=== PATIENT | female | born 1980 | race Caucasian/White ===

== ENCOUNTER 2019-10-02 10:10 | Outpatient (CLI) | payer BC, SELFPAY ==
--- NOTE | ~2019-10-02 | US_ITS ---
EXAMINATION: US carotid duplex BI DATE: 10/02/2019 10:52 INDICATION: Left carotid bruit TECHNIQUE: Grayscale, color Doppler, and pulsed Doppler images of the cervical carotid arteries were obtained. The degree of vessel stenosis is placed in one of the following categories: normal, <50%, 5 0-69%, >=70% but less than near-occlusion, near-occlusion, or total occlusion. Note that percent sten osis relative to normal distal artery lumen diameter is indirectly measured from velocity measurement s as described by Fco, et al. Radiology 2003; 229:340-346. Notes: Normal: Peak systolic velocity <125 centimeters/sec and no plaque <50%. Peak systolic velocity <125 ( EDV <40; ICA/CCA PSV ratio <2.0; used these factors only a tandem lesions or low cardiac output or co ntralateral disease) 50-69 %: PSV 125-230 (EDV 40-100; ratio 2-4) >= 70% but less than near occlusion: PSV greater than 230 (EDV > 100; ratio> 4.0) Near Occlusion: PSV that is variable; markedly narrowed lumen Occlusion: Absent flow on color/spectral Doppler and no lumen on joseph scale. COMPARISON: 12/30/2016 FINDINGS: RIGHT: The right common carotid artery (CCA) peak systolic velocity (PSV) is 126 cm/s. The right internal ca rotid artery (ICA) PSV is 108 cm/s. The right ICA end-diastolic velocity (EDV) is 26 cm/s. The right ICA/CCA PSV ratio is 0.9. The external carotid artery (ECA) PSV is 90 cm/s. There is antegrade flow i n the right vertebral artery. LEFT: The left CCA PSV is 132 cm/s. The left ICA PSV is 116 cm/s. The left ICA EDV is 45 cm/s. The left ICA /CCA PSV ratio is 0.9. The ECA PSV is 96 cm/s. There is antegrade flow in the left vertebral artery. IMPRESSION: 1. Less than 50% stenosis in the right internal carotid artery by sonographic criteria. 2. Less than 50% stenosis in the left internal carotid artery by sonographic criteria. Reviewed, dictated and finalized at location I. IMPRESSION: 1. Less than 50% stenosis in the right internal carotid artery by sonographic c rachna. 2. Less than 50% stenosis in the left internal carotid artery by sonographic virgen diaz.
== END 2019-10-02 10:11 | disposition home or self-care (01) ==
PROVIDERS: PCP Internal Medicine; Visit Provider Nurse Practitioner
DX: R09.89 Other specified symptoms and signs involving the circulatory and respiratory systems (principal); I65.23 Occlusion and stenosis of bilateral carotid arteries
CPT/HCPCS: 93880

== ENCOUNTER 2023-10-02 11:05 | Outpatient (CLI) | payer BC, SELFPAY ==
--- NOTE | 2023-10-02 11:21 | ECG_ITS ---
Test Date: 2023-10-02 11:27:10 Measurements Intervals [place] Rate: 72 P: 68 MA: 147 QRS: 68 QRSD: 88 T: 64 QT: 371 QTc: 407 Interpretive Statements SINUS RHYTHM WITH SINUS ARRHYTHMIA NORMAL ELECTROCARDIOGRAM No previous ECG available for comparison Electronically Signed On 10-03-2023 13:31:20 CDT by Ignacio Martinez M.D.
== END 2023-10-02 11:06 | disposition home or self-care (01) ==
LOC: ANHCARD 11:08
PROVIDERS: PCP Nurse Practitioner Family; Visit Provider Nurse Practitioner Family
DX: R42 Dizziness and giddiness (principal); R06.02 Shortness of breath; R07.9 Chest pain, unspecified
CPT/HCPCS: 93005

== ENCOUNTER 2023-11-05 09:40 | Outpatient (CLI) | payer BC, SELFPAY ==
--- NOTE | 2023-11-05 10:12 | EST_ITS ---
Patient Info Name: Karla Connolly Age: 43 years : 1980 Gender: Female Ht: 65 in Wt: 145 lbs BSA: 1.75 m2 HR: 74 bpm BP: 120 / 70 mmHg Exam Date: 11/05/2023 10:33 AM Exam Location: Echo Lab Patient Status: Outpatient Admit Date: 11/05/2023 Staff Ordering Physician: Patty Ureña APRN Attending Provider: Patty Ureña APRN Exercise Technologist: Paty Garcia [facility] Exercise Physician: Vickey Alvarez DO Exam Type: CA stress test treadmill Study Info A treadmill exercise stress test was performed. Summary 1. 1. Negative Owen exercise stress test for ischemic ST changes by ECG criteria. 2. 2. Reduced functional capacity, achieving 8.9 METs of workload. 3. 3. Appropriate HR response to exercise. 4. 4. Appropriate HR recovery at 1 minute post exercise. 5. 5. No imaging with stress testing. 6. 6. Patient informed of the above results. Protocol: Owen Stress ECG Details Stage: REST Duration (min): 4 min : 43 sec Speed (mph): 0.0 Grade (%): 0 HR (bpm): 74 SBP (mmHg): 120 DBP (mmHg): 70 METS: --- Stage: REST Duration (min): 7 min : 24 sec Speed (mph): 0.0 Grade (%): 0 HR (bpm): 80 SBP (mmHg): 120 DBP (mmHg): 70 METS: --- Stage: STAGE 1 Duration (min): 1 min : 0 sec Speed (mph): 1.7 Grade (%): 10 HR (bpm): 115 SBP (mmHg): 120 DBP (mmHg): 70 METS: --- Stage: STAGE 1 Duration (min): 2 min : 0 sec Speed (mph): 1.7 Grade (%): 10 HR (bpm): 130 SBP (mmHg): 120 DBP (mmHg): 70 METS: --- Stage: STAGE 1 Duration (min): 3 min : 0 sec Speed (mph): 1.7 Grade (%): 10 HR (bpm): 134 SBP (mmHg): 136 DBP (mmHg): 53 METS: --- Stage: STAGE 2 Duration (min): 1 min : 0 sec Speed (mph): 2.5 Grade (%): 12 HR (bpm): 142 SBP (mmHg): 136 DBP (mmHg): 53 METS: --- Stage: STAGE 2 Duration (min): 2 min : 0 sec Speed (mph): 2.5 Grade (%): 12 HR (bpm): 149 SBP (mmHg): 146 DBP (mmHg): 59 METS: --- Stage: STAGE 2 Duration (min): 3 min : 0 sec Speed (mph): 2.5 Grade (%): 12 HR (bpm): 154 SBP (mmHg): 146 DBP (mmHg): 59 METS: --- Stage: STAGE 3 Duration (min): 1 min : 0 sec Speed (mph): 3.4 Grade (%): 14 HR (bpm): 158 SBP (mmHg): 146 DBP (mmHg): 59 METS: --- Stage: STAGE 3 Duration (min): 1 min : 0 sec Speed (mph): 3.4 Grade (%): 14 HR (bpm): 158 SBP (mmHg): 146 DBP (mmHg): 59 METS: --- Stage: RECOVERY Duration (min): 0 min : 59 sec Speed (mph): 0.0 Grade (%): 0 HR (bpm): 148 SBP (mmHg): 146 DBP (mmHg): 59 METS: --- Stage: RECOVERY Duration (min): 1 min : 59 sec Speed (mph): 0.0 Grade (%): 0 HR (bpm): 131 SBP (mmHg): 146 DBP (mmHg): 59 METS: --- Stage: RECOVERY Duration (min): 2 min : 59 sec Speed (mph): 0.0 Grade (%): 0 HR (bpm): 115 SBP (mmHg): 164 DBP (mmHg): 76 METS: --- Stage: REC
== END 2023-11-05 09:41 | disposition home or self-care (01) ==
PROVIDERS: PCP Nurse Practitioner Family; Visit Provider Nurse Practitioner Family
DX: E78.5 Hyperlipidemia, unspecified (principal); L98.9 Disorder of the skin and subcutaneous tissue, unspecified; R53.83 Other fatigue; G47.00 Insomnia, unspecified; R07.9 Chest pain, unspecified; R06.02 Shortness of breath; R42 Dizziness and giddiness
CPT/HCPCS: 93017